=== PATIENT | female | born 1940 | race Caucasian/White ===

== ENCOUNTER 2017-06-07 08:02 | Day surgery (SDC) | payer MEDICARE, OTHER ==
[~2017-06-07 08:02] MED LIST: ACETAMINOPHEN 1,000 MG/100 ML BTL IV ONE
[2017-06-07] MEDS ORDERED: LIDOCAINE HCL 1% MDV 20 ML VIAL SQ ONE (10:56)
[2017-06-07] MEDS ORDERED: CEFAZOLIN 1 Gram 1 GM/50 ML BAG IVPB ONE (14:36)
[2017-06-07] MEDS ORDERED: KETOROLAC 30 MG/ML VIAL IVP ONE (14:52)
[2017-06-07] MEDS ORDERED: MIDAZOLAM HCL 2MG/2ML VIAL IV ONE (14:52)
[2017-06-07] MEDS ORDERED: PROPOFOL 10 MG/ML VIAL IV ONE (14:52)
[2017-06-07] MEDS ORDERED: *PACU ONLY* KETAMINE HCL 10 MG/ML (20ML) VIAL IV ONE (14:52)
--- NOTE | 2017-06-11 12:40 | Operative Note ---
DATE OF SURGERY: 06/07/2017 Surgeon: Tavon Capone DO Referring physician: Dipak Jordan DO PREOPERATIVE DIAGNOSIS: Trigger finger of the left ring finger. POSTOPERATIVE DIAGNOSIS: Trigger finger of the left ring finger. OPERATION: Tenotomy A1 berry of the left ring finger. Anesthesia: Assisted local. PROCEDURE: This 76-year-old female was taken to the operating room and placed in the supine position on the operating room table. Assisted local anesthesia was used, 1% Xylocaine plain, 2 mL was used as a local anesthetic. The area of the proximal edge of the A1 berry was anesthetized and after satisfactory anesthetic and prepping and draping in the usual sterile fashion, a longitudinal incision was made, dissecting down through the skin and subcutaneous tissue. Hemostasis was obtained with the electrocautery and the proximal edge of the A1 berry was identified and it was split from its proximal to its distal margin under direct vision and there were excoriations of the sublimis tendon, which were seen proximal to this, and thickening of the tenosynovium overlying this was present and this was divided to expose the tendon, and a segment of about 0.5 cm to 0.75 of a cm showed some excoriation of the tendon, almost an abrasive-type change, but the tendon was not completely disrupted. Once the tenosynovium was divided, the tendon moved freely with no catching of the tendon being identified, some mild nodularity of the tendon was also identified. The wound was irrigated. Hemostasis was obtained with the electrocautery, and the wound closed with interrupted 6-0 nylon suture. Sterile dressings were applied and the patient was taken to the recovery room in satisfactory condition. GROSS PATHOLOGY: There was excoriation of the sublimis tendon and a mild nodularity of the tendon as it entered the A1 berry as described above. MTDD
== END 2017-06-07 09:40 | disposition home or self-care (01) ==
LOC: SUR 08:02
PROVIDERS: ATTEND Orthopaedic Surgery
DX: M65.342 Trigger finger, left ring finger (principal); I10 Essential (primary) hypertension; M19.90 Unspecified osteoarthritis, unspecified site; F41.8 Other specified anxiety disorders; F03.91 Unspecified dementia, unspecified severity, with behavioral disturbance
CPT/HCPCS: J1885

== ENCOUNTER 2018-01-10 13:03 | Inpatient (IN) | payer MEDICARE, OTHER ==
[2018-01-10 14:08] LABS: HEMATOCRIT 39.1 % (35.0-47.0); MEAN CELL VOLUME 97.3 fl (81-97); MEAN CORPUSCULAR HEMOGLOBIN 32.3 pg (27-33); MEAN CORPUSCULAR HGB CONC 33.2 g/dl (32-36); MEAN PLATELET VOLUME 9.8 fl (7.4-10.4); PLATELET COUNT 202 K/uL (130-400); RED BLOOD COUNT 4.02 M/uL (3.80-5.40); RED CELL DISTRIBUTION WIDTH 13.4 % (11.5-14.5); WHITE BLOOD COUNT W/O DIFF 7.3 K/uL (4.2-12.2)
[2018-01-10 14:19] LABS: INFLUENZA A NEGATIVE (NEGATIVE); INFLUENZA B NEGATIVE (NEGATIVE)
[2018-01-10 14:25] LABS: PLATELET ESTIMATE NORMAL (NORMAL)
[2018-01-10 14:46] LABS: BILIRUBIN,TOTAL 0.6 mg/dL (0.2-1.0)
[2018-01-10 14:52] LABS: ALB/GLOB RATIO 1.2 (1.1-1.8); ALBUMIN 4.3 g/dL (4.0-5.0)
[2018-01-10 14:58] LABS: URINE APPEARANCE CLEAR; URINE BILIRUBIN NEGATIVE (NEGATIVE); URINE BLOOD NEGATIVE (NEGATIVE); URINE COLOR YELLOW; URINE GLUCOSE (UA) NEGATIVE (NEGATIVE); URINE KETONE NEGATIVE (NEGATIVE); URINE LEUKOCYTE ESTERASE NEGATIVE (NEGATIVE); URINE NITRITE NEGATIVE (NEGATIVE); URINE PROTEIN NEGATIVE (NEGATIVE); URINE UROBILINOGEN 0.2 E.U./dL (0.20 - 1.00)
[2018-01-10] MEDS ORDERED: CEFTRIAXONE SODIUM 1 GM in 0.9 % SODIUM CHLORIDE 100ML 100 ML IVPB ONE (15:12)
--- NOTE | 2018-01-10 16:14 | Emergency Department Record ---
History of Present Illness - General Chief complaint: Weakness Stated complaint: WEAKNESS Time Seen by Provider: 01/10/18 13:25 Source: Patient Mode of Arrival: EMS Limitations: No limitations - History of Present Illness Initial comments: pt has had a productive cough and increasing weakness. she was at [facility] via ambulance last night and was sent home. pt was d/w dr boucher and he wanted her to be brought here. daughters state she has become extremely weak MD Complaint: Generalized weakness Onset/Timin -: Days(s) Consistency: Getting worse Improves with: None Worsens with: None Associated Symptoms: Fever/chills, Shortness of breath - Jocelynn Coma Scale Eye Response: (4) Open spontaneously Verbal Response: (4) Confused conversation - Related Data Home Medications Medication Instructions Recorded Confirmed Last Taken Docusate Sodium [Colace] 100 mg PO BID 01/10/18 01/10/18 01/10/18 Levothyroxine Sodium [Synthroid] 125 mcg PO DAILY 01/10/18 01/10/18 01/10/18 Allergies Allergy/AdvReac Type Severity Reaction Status Date / Time doxycycline Allergy Unknown ITCHING Verified 04/16/16 10:16 promethazine HCl Allergy Unknown HYPERSENSIT Verified 04/16/16 10:16 [From PHENERGAN] IVITY Travel Screening - Travel/Exposure Within Last 30 Days Have you traveled within the last 30 days?: No - Travel/Exposure Within Last Year Have you traveled outside the [place] in the last year?: No - Additonal Travel Details Have you been exposed to anyone with a communicable illness?: No - Travel Symptoms Symptom Screening: None Review of Systems Reviewed: No additional complaints except as noted below Constitutional: Reports: As per HPI. Denies: Chills, Fever, Malaise, Night sweats, Weakness, Weight change Eyes: Reports: As per HPI. Denies: Eye discharge, Eye pain, Photophobia, Vision change ENT: Reports: As per HPI. Denies: Congestion, Dental pain, Ear pain, Epistaxis , Hearing loss, Throat pain Respiratory: Reports: As per HPI. Denies: Cough, Dyspnea, Hemoptysis, Stridor, Wheezes Cardiovascular: Reports: As per HPI. Denies: Arrhythmia, Chest pain, Dyspnea on exertion, Edema, Murmurs, Orthopnea, Palpitations, Paroxysmal nocturnal dyspnea, Rheumatic Fever, Syncope Endocrine: Reports: As per HPI. Denies: Fatigue, Heat or cold intolerance, Polydipsia, Polyuria Gastrointestinal: Reports: As per HPI. Denies: Abdominal pain, Constipation, Diarrhea, Hematemesis, Hematochezia, Melena, Nausea, Vomiting Genitourinary: Reports: As per HPI. Denies: Abnormal menses, Discharge, Dyspareunia, Dysuria, Frequency, Hematuria, Incontinence, Retention, Urgency Musculoskeletal: Reports: As per HPI. Denies: Arthralgia, Back pain, Gout, Joint swelling, Myalgia, Neck pain Skin: Reports: As per HPI. Denies: Bruising, Change in color, Change in hair/ nails, Lesions, Pruritus, Rash Neurological: Reports: As per HPI. Denies: Abnormal gait, Confusion, Headache, Numbness, Paresthesias, Seizure, Tingling, Tremors, Vertigo, Weakness Psychiatric: Reports: As per HPI. Denies: Anxiety, Auditory hallucinations, Depression, Homicidal thoughts, Suicidal thoughts, Visual hallucinations Hematological/Lymphatic: Reports: As per HPI. Denies: Anemia, Blood Clots, Easy bleeding, Easy bruising, Swollen glands Past Medical History - SOCIAL HISTORY Smoking Status: Never smoker Alcohol Use: None Drug Use: None - RESPIRATORY Hx Respiratory Disorders: Yes Hx Pneumonia: Yes Hx Sleep Apnea: Yes Hx of CPAP: Yes Comment:: sarcoidosis - CARDIOVASCULAR Hx Cardio Disorders: Yes Hx Hypertension: Yes (on meds good control) - NEURO Hx Neuro Disorders: Yes Hx Dementia: Yes Comment:: onset dementia - GI Hx GI Disorders: Yes Hx Irritable Bowel: Yes (on meds good control) Comment:: hx constipation, rectal prolapse - Hx Genitourinary Disorders: Yes 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) - ENDOCRINE Hx Endocrine Disorders: No - MUSCULOSKELETAL Hx Musculoskeletal Disorders: Yes Hx Arthritis: Yes Comment:: chronic neck, thoracic and back issues - PSYCH Hx Psych Problems: Yes Hx Anxiety: Yes Hx Depression: Yes - HEMATOLOGY/ONCOLOGY Hx Hematology/Oncology Disorders: Yes Hx Blood Transfusions: No (jehovahs witness) Family Medical History Any Significant Family History?: No Hx Cancer: Father, Brother/Sister Hx Heart Disease: Mother Physical Exam - General General Appearance: Alert, Cooperative, Mild distress - Head Head exam: Normal inspection - Eye Eye exam: Normal appearance, PERRL, EOMI Pupils: Normal accommodation - ENT ENT exam: Normal exam, Mucous membranes moist, Normal external ear exam, Normal orophraynx Ear exam: Normal external inspection. negative: External canal tenderness Nasal Exam: Normal inspection. negative: Discharge, Sinus tenderness Mouth exam: Normal external inspection, Tongue normal Teeth exam: Normal inspection. negative: Dental caries Throat exam: Normal inspection. negative: Tonsillar erythema, Tonsillar exudate - Neck Neck exam: Normal inspection, Full ROM. negative: Tenderness - Respiratory Respiratory exam: Rales. negative: Respiratory distress - Cardiovascular Cardiovascular Exam: Regular rate, Normal rhythm, Normal heart sounds - GI/Abdominal GI/Abdominal exam: Soft, Normal bowel sounds. negative: Tenderness - Rectal Rectal exam: Deferred - exam: Deferred - Extremities Extremities exam: Normal inspection, Full ROM, Normal capillary refill. negative: Tenderness - Back Back exam: Reports: Normal inspection, Full ROM. Denies: Muscle spasm, Rash noted, Tenderness - Neurological Neurological exam: Alert, Normal gait, Oriented X3, Reflexes normal - Psychiatric Psychiatric exam: Normal affect, Normal mood - Skin Skin exam: Dry, Intact, Normal color, Warm Course Vital Signs 01/10/18 01/10/18 13:05 15:35 Temperature 98.8 F Pulse Rate 74 Pulse Rate [ 76 Pulse Ox Probe] Respiratory 18 16 Rate Blood Pressure 144/75 Blood Pressure 154/80 [Left Arm] Pulse Ox 92 L 99 Medical Decision Making - Lab Data Result diagrams: 01/10/18 12:37 01/10/18 12:37 Lab Results 01/10/18 01/10/18 01/10/18 Range/Units 12:37 12:37 13:45 WBC 7.3 (4.2-12.2) K/uL RBC 4.02 (3.80-5.40) M/uL Hgb 13.0 (11.6-16.0) gm/dl Hct 39.1 (35.0-47.0) % MCV 97.3 H (81-97) fl MCH 32.3 (27-33) pg MCHC 33.2 (32-36) g/dl RDW 13.4 (11.5-14.5) % Plt Count 202 (130-400) K/uL MPV 9.8 (7.4-10.4) fl Neutrophils % 69.0 (47-80) % Band Neutrophils % 12.0 H (0-5) % Eosinophils % Not Reportable Basophils % Not Reportable Lymphocytes 16.0 (16-45) % Monocytes 3.0 (0-9) % Platelet Estimate Normal (NORMAL) RBC Morphology Normal Sodium 139 (136-145) mmol/L Potassium 3.7 (3.4-4.5) mmol/L Chloride 99 (98-107) mmol/L Carbon Dioxide 28.0 (22-29) mmol/L Anion Gap 12.0 (7-16) BUN 20 (8-23) mg/dL Creatinine 1.0 H (0.5-0.9) mg/dL Estimated GFR 57 mL/min Random Glucose 108 (74-109) mg/dL Calcium 10.1 (8.8-10.2) mg/dL Total Bilirubin 0.60 (0.2-1.0) mg/dL AST 19 (10.0-35.0) U/L ALT 16 (<33) U/L Alkaline Phosphatase 76 (35-104) U/L Total Protein 8.0 (6.6-8.7) g/dL Albumin 4.3 (4.0-5.0) g/dL Globulin 3.7 (1.4-4.8) gm/dL Albumin/Globulin Ratio 1.2 (1.1-1.8) Urine Color Urine Appearance Urine pH (5.0-8.0) Ur Specific [place] (1.002-1.030) Urine Protein (NEGATIVE) Urine Glucose (UA) (NEGATIVE) Urine Ketones (NEGATIVE) Urine Blood (NEGATIVE) Urine Nitrite (NEGATIVE) Urine Bilirubin (NEGATIVE) Urine Urobilinogen (0.20 - 1.00) E.U./dL Ur Leukocyte Esterase (NEGATIVE) Influenza Type A Ag Negative (NEGATIVE) Influenza Type B Ag Negative (NEGATIVE) 01/10/18 Range/Units 14:45 WBC (4.2-12.2) K/uL RBC (3.80-5.40) M/uL Hgb (11.6-16.0) gm/dl Hct (35.0-47.0) % MCV (81-97) fl MCH (27-33) pg MCHC (32-36) g/dl RDW (11.5-14.5) % Plt Count (130-400) K/uL MPV (7.4-10.4) fl Neutrophils % (47-80) % Band Neutrophils % (0-5) % Eosinophils % Basophils % Lymphocytes (16-45) % Monocytes (0-9) % Platelet Estimate (NORMAL) RBC Morphology Sodium (136-145) mmol/L Potassium (3.4-4.5) mmol/L Chloride (98-107) mmol/L Carbon Dioxide (22-29) mmol/L Anion Gap (7-16) BUN (8-23) mg/dL Creatinine (0.5-0.9) mg/dL Estimated GFR mL/min Random Glucose (74-109) mg/dL Calcium (8.8-10.2) mg/dL Total Bilirubin (0.2-1.0) mg/dL AST (10.0-35.0) U/L ALT (<33) U/L Alkaline Phosphatase (35-104) U/L Total Protein (6.6-8.7) g/dL Albumin (4.0-5.0) g/dL Globulin (1.4-4.8) gm/dL Albumin/Globulin Ratio (1.1-1.8) Urine Color Yellow Urine Appearance Clear Urine pH 7.5 (5.0-8.0) Ur Specific [place] 1.010 (1.002-1.030) Urine Protein Negative (NEGATIVE) Urine Glucose (UA) Negative (NEGATIVE) Urine Ketones Negative (NEGATIVE) Urine Blood Negative (NEGATIVE) Urine Nitrite Negative (NEGATIVE) Urine Bilirubin Negative (NEGATIVE) Urine Urobilinogen 0.2 (0.20 - 1.00) E.U./dL Ur Leukocyte Esterase Negative (NEGATIVE) Influenza Type A Ag (NEGATIVE) Influenza Type B Ag (NEGATIVE) Disposition Disposition: Admit Clinical Impression: Pneumonia Qualifiers: Pneumonia type: due to unspecified organism Laterality: bilateral Lung location : unspecified part of lung Qualified Code(s): J18.9 - Pneumonia, unspecified organism Disposition: Still a Patient at [facility] Decision to Admit: Admit from ER Decision to Admit Date: 01/10/18 Decision to Admit Time: 16:20 Forms: Patient Portal Access Quality - Quality Measures Quality Measures: N/A - Blood Pressure Screening Does Patient Have Any of the Following: Active Dx of HTN Blood Pressure Classification: Hypertensive Reading Systolic Measurement: 144 Diastolic Measurement: 75 Screening for High Blood Pressure: Patient Exclusion, Hx of HTN [P6306]
[2018-01-10] MEDS ORDERED: ACETAMINOPHEN 325 MG TAB PO PRN (19:13)
[2018-01-10] MEDS ORDERED: ALBUTEROL SULFATE (0.083%) 2.5 MG/3 ML NEB INH PRN (20:08)
[2018-01-10] MEDS: METHYLPREDNISOLONE PF 125MG/VIAL IVP SCH (20:15)
[2018-01-10] MEDS: GABAPENTIN 100 MG CAPSULE PO SCH (21:15)
[2018-01-10] MEDS: DOCUSATE SODIUM 100 MG CAPSULE PO SCH (21:15)
[2018-01-10] MEDS: PRAMIPEXOLE DI-HCL 0.25 MG TABLET PO SCH (21:16)
[2018-01-10] MEDS: IPRATROPIUM/ALBUTEROL (0.5MG/3MG) NEB INH SCH (22:45)
[2018-01-11] MEDS: IPRATROPIUM/ALBUTEROL (0.5MG/3MG) NEB INH SCH ×5 (05:54→21:27)
[2018-01-11] MEDS: METHYLPREDNISOLONE PF 125MG/VIAL IVP SCH (06:02)
[2018-01-11] MEDS: LEVOTHYROXINE SODIUM 125 MCG TABLET PO SCH (06:02)
--- NOTE | 2018-01-11 07:19 | RADIOLOGY REPORT ---
EXAM: CHEST, TWO VIEWS HISTORY: CHEST PAIN. TECHNIQUE: Frontal and lateral views of the chest were obtained. Comparison: 02/13/13 chest. FINDINGS: Cardiomegaly with ectasia of the thoracic aorta. Scarring in the left lung base. Stimulating wires project over the upper thoracic spine. Osteopenia. Underlying COPD with coarse reticulonodular changes bilaterally. No pneumothorax. No confluent air space opacity. IMPRESSION: CARDIOMEGALY. COARSE RETICULONODULAR CHANGES BILATERALLY SUGGESTING PNEUMONITIS. CONTINUED FOLLOW-UP RECOMMENDED. UNDERLYING COPD. JOB NUMBER: [id number] [facility]
[2018-01-11] MEDS ORDERED: PREDNISONE 1 MG TABLET PO SCH (08:00)
[2018-01-11] MEDS: BUPROPION HCL 150 MG TAB.SR.12H PO SCH ×2 (09:26→22:25)
[2018-01-11] MEDS: GABAPENTIN 100 MG CAPSULE PO SCH ×3 (09:26→22:25)
[2018-01-11] MEDS: DULOXETINE HCL 30 MG CAPSULE.DR PO SCH (09:26)
[2018-01-11] MEDS: DONEPEZIL HCL 5 MG TABLET PO SCH (09:27)
[2018-01-11] MEDS: AMLODIPINE BESYLATE 5MG TAB PO SCH (09:27)
[2018-01-11] MEDS: DOCUSATE SODIUM 100 MG CAPSULE PO SCH ×2 (09:27→22:25)
--- NOTE | 2018-01-11 10:40 | History and Physical Report ---
DATE OF ADMISSION: 01/10/2018 Surgeon: Ryan Schumacher DO CHIEF COMPLAINT: Cough, congestion, decreased appetite and weakness over the last 2 days. CHIEF COMPLAINT/HISTORY OF CHIEF COMPLAINT: This 77 year old came in here after being sick for 2 days. Seen at [facility]. Given a treatment of albuterol and diagnosed with flu, dehydration, and she previously got worse at home. They called Dr. Jordan, their primary doctor, who said to come in the emergency department here. Evaluated by Dr. Barron. Admitted to the hospital with bilateral pneumonia, difficulty breathing, and a coarse cough. Daughters Shirin and Elmira were at the bedside giving me the history. Patient has had dementia for 1-2 years. Does not recognize the daughters anymore. Of course, the cough just came on over the last 2 days. She had a flu panel done in the emergency department. Will also do a flu PCR to confirm the flu negative panel. 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 [facility], which are dressing the wound every week or 2 weeks, according to the family. Does not look infected at this time, but is a full thickness ulcer of the skin, about the size of the palm of my hand. MEDICAL HISTORY: Sarcoidosis, on prednisone 1 mg a day chronically, obstructive sleep apnea and on CPAP, dementia, colitis, hypertension, irritable bowel syndrome, renal insufficiency, chronic back and neck pain, and a long history of migraine headaches, which seem to have resolved since she had the dementia. Hypothyroidism. SURGICAL HISTORY: Multiple injections, rhizotomy, skin cancer, bilateral legs, bilateral knee scope and shoulder scope, hysterectomy, left total knee arthroplasty, hernia x2 repair, trigger finger repair. She had a peripheral nerve stimulator trial implant and removal, EGD, colonoscopy scope, dental removal of teeth and a jaw surgery, right cataract removal, thumb surgery, right thoracic rhizotomy on 09/02/2014. CURRENT MEDICATIONS: On admission: 1. Levothyroxine 125 mcg q.daily. 2. Amlodipine 2.5 q.daily. 3. Melatonin 5 mg at h.s. 4. Aricept 10 mg daily. 5. Colace 100 mg b.i.d. 6. Neurontin 200 mg t.i.d. 7. Calcium carbonate 600 mg daily. 8. Wellbutrin 300 mg daily. 9. Prednisone 1 mg daily. 10. Mirapex 0.75 mg at h.s. 11. Folic acid 1 mg daily. 12. Fluocinonide 15 g topically daily. This is a cream used for her skin cancer. 13. Cymbalta 60 mg daily. 14. Vitamin D3 2000 units daily. ALLERGIES: DOXYCYCLINE and PROMETHAZINE. SOCIAL HISTORY: She never smoked. No drug use or alcohol use. FAMILY HISTORY: Father, brother, and sister had cancer. Mother had heart disease. SYSTEMS REVIEW: HEENT: See chief complaint. She has congestion, cough for the last 2 days. Cardiovascular: No chest pain. Respiratory: She has kind of a coarse bronchial-type cough, very loud and audibly by standing at the bedside. Gastrointestinal: No nausea, vomiting, diarrhea, black stools, or bloody stools. Genitourinary: No dysuria, hematuria, frequency, burning on urination. Musculoskeletal: No joint or bone abnormalities. Neurologic: No CVA, paralysis, or paresthesias. She does have Alzheimer disease for the last 1-2 years. Does not recognize her daughters anymore, and she lives with her daughter, Shirin. Gynecologic: No vaginal bleeding or lumps in her breasts. Endocrine: She has hypothyroidism. No diabetes. Integumentary: She has skin cancer on her leg with a radiation wound to the left lower leg. PHYSICAL EXAMINATION: VITAL SIGNS: Height 5 foot 5. Weight 119 pounds. Temperature 97.7. Pulse 97. Blood pressure 167/82. Respiratory rate 16. Pulse ox 95% on 2 L nasal cannula. HEENT: Pupils equal, round, and react to light and accommodation. Extraocular muscles intact. Funduscopic examination is benign. Tympanic membranes are ashley. Throat is clear. NECK: Supple. No jugular venous distention, hepatojugular reflux. No carotid bruit. Thyroid smooth. CARDIOVASCULAR: Regular rate and rhythm with no murmurs, clicks, rubs, or gallops. RESPIRATORY: Coarse breath sounds bilaterally and very loud cough with rattling. ABDOMEN: Soft, nontender. No hepatosplenomegaly. No masses. No tenderness. Bowel sounds are active. No bruit. EXTREMITIES: No pitting edema. No cyanosis. No clubbing. Full range of motion. Peripheral pulses good. She has a wound on her left lower leg about the size of the palm of my hand from radiation and skin cancer. BREAST, GYNECOLOGIC, AND RECTAL: Exam deferred. NEUROLOGIC: Cranial nerves II-XII intact. No gross deficits. Sensation normal. Strength normal. Deep tendon reflexes bilaterally. Babinski negative. She is alert, but disoriented to time, place. She knows her name. IMPRESSION: 1. Bilateral pneumonia. 2. Sarcoidosis. 3. Dementia, Alzheimer type. 4. Hypothyroidism. 5. Renal insufficiency. 6. Hypertension. 7. Chronic back pain. 8. She has had a history of colitis in the past. 9. She has obstructive sleep apnea. PLAN: Rocephin 1 g q.12 hours. Azithromycin 500 mg q.daily. DuoNeb treatments q.4 hours while awake. Will let her hydrate herself and watch her fluid status because her lungs sound very full at this point. Solu-Medrol 60 mg q.8 hours. The family is going to decide on DNR. It sounds like she is going to be a DNR, but they are still doing a discussion of that situation. Plan as stated already. Inpatient certification: Admitted to inpatient care based on my medical assessment after consideration of the patient risk factors, age, comorbidities, and the patient's presenting symptoms, and acuity. I expect that this patient will remain in the hospital for greater than or equal to 2 midnights and that the services needed warrant inpatient care because of bilateral pneumonia, need for oxygen, breathing treatments, and IV antibiotics. Estimated length of stay 3 days. The patient may reasonably expect to be discharged or transferred to a hospital within 96 hours after admission to [facility]. I certify that my determination is in accordance with my understanding of Medicare requirements for reasonable and necessary inpatient services. MARLON
--- NOTE | 2018-01-11 11:35 | Rehab Evaluation ---
Patient Information - Patient Information Diagnosis: Pneumonia, Weakness Ordered Treatment: PT Evaluate and Treat Status: Initial Evaluation Surgery: No Past Medical/Surgical Hx: PAST MEDICAL/SURGICAL HISTORY Past Surgical History mult inj and rhiz; Skin cancer bilateral legs valentine knee scope and shoulder scope; hyst; LTKA; hernia x2; trigger finger; PNS trial/implant/removal; egd/c-scope, dental (teeth removed and jaw moved forward); right cataract removal; thumb sx; right thoracic rhiz 09-02-14. right total knee 2015. 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 The patient's bedroom and bathroom are on the main level. The home has 6-8 steps to enter with railings on both sides. The patient's bathroom has a tub/ shower combo with a shower/transfer bench. The patient states that she uses a 2WW for ambulation outside of the home, but does not use device for inside the home. Her daughter states that the patient needs cues for shower transfers, dressing, and some assistance for other ADLs.) - Time With Patient Total Time Spent With Patient (Min): 30 Treatment Procedures: Detail (PT Initial Evaluation) Subjective Information - Subjective Information Per Patient (Patient's daughter states that she is doing much better today than yesterday - acting more like herself. Still shows some weakness. Said that dementia has worsened since last swing-bed stay last year.) Objective Data - Pain Pain Present: No Pain Intensity: 0 Pain Scale Used: Numeric (1 - 10) - Mental Status Patient Orientation: Person (The patient suffers from dementia, so orientation to place and time was not able to be assessed due to difficulty following questions.) - ROM Within normal limits (Both Hips, knees, and ankles were all WNL) - Strength/Tone Within normal limits (B hip abduction/adduction 5/5, B Knee Flexion/Extension 5/ 5, B Ankle Dorsiflexion/Plantarflexion 5/5. Hip flexion was not assessed due to patient not able to follow instructions.) - Bed Mobility Independent (The patient was able to transfer from bed to the bedside - Supine to sit - Independently. Scooting and sit to supine was not assessed.) - Transfers Independent (The patient was independent/CGA x1 to transfer from sit to stand. Independent with stand to sit.) - Balance Balance Sitting: Good (No LOB with sitting at the bedside during muscle strength testing.) Balance Standing: Fair (The patient was able to stand at the bedside without loss of balance, with and without UE support from the walker. She did not have LOB with ambulation, but had some shakiness with ambulation.) - Sensation Intact - Gait Detail (The patient was able to ambulate from the bedside to the chair within her room with hand-hold assist x2. She had slight unsteadiness with gait, but no major loss of balance) - Special Tests No Therapy Assessment - Therapy Assessment Detail (The patient required CGA for transfers at initial evaluation, but was able to complete transfer nearly independently. The patient had no strength or ROM deficits with testing, but the patient did have some unsteadiness with gait activities. The patient would benefit from either home physical therapy or continued therapy at [facility]. The patient would benefit from continued therapy for gait training and balance activities.) Problem List - Problem List Physical Therapy Problem List: Detail (1) Unsteadiness with gait 2) Decreased endurance 3) Cognitive deficits due to dementia 4) Decreased standing balance) Goals - Goals Physical Therapy Goals: 1) The patient will be able to ambulate with least restrictive assistive device for household distances, so she can complete ADLs safely. 2) The patient will tolerate 20 minutes of physical activities to increase endurance for ADLs. 3) The patient will increase standing balance to decrease risk of falls in the home Prognosis - Prognosis Good Plan - Plan Physical Therapy Plan: The patient will be seen 1-2x/day M-F until inpatient discharge for gait training and balance activities. The patient would benefit from continued home PT or [facility] upon discharge from [facility].
--- NOTE | 2018-01-11 11:39 | Rehab Evaluation ---
Patient Information - Patient Information Diagnosis: Pneumonia, weakness Ordered Treatment: OT Evaluate and Treat Status: Initial Evaluation Surgery: No Past Medical/Surgical Hx: PAST MEDICAL/SURGICAL HISTORY Past Surgical History mult inj and rhiz; Skin cancer bilateral legs valentine knee scope and shoulder scope; hyst; LTKA; hernia x2; trigger finger; PNS trial/implant/removal; egd/c-scope, dental (teeth removed and jaw moved forward); right cataract removal; thumb sx; right thoracic rhiz 09-02-14. right total knee 2015. 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 Daughter reports that she is independent with painting her fingernails and occasionally brushing her teeth but this depends on the day. Daughter is present during pt showering due to safety and cueing required secondary to pt's dementia.) Social History: Detail (Pt lives with oldest daughter and has 24/7 supervision available. They live in a Bi-level house with pt occupying main floor. There are 6-8 steps to enter home with bilateral railings. Bathroom consists of tub/ shower combo with hand held shower head and transfer bench. Pt sits to shower. Pt also receives visits from home health nurse.) Precautions: [place], Fall - Time With Patient Total Time Spent With Patient (Min): 20 Treatment Procedures: Detail (OT eval LOW) Subjective Information - Subjective Information Per Patient Objective Data - Pain Pain Present: No - Mental Status Patient Orientation: Person (Pt unable to state her name, age, or current location.) - ROM Within normal limits (Pt is WNL BUE's) - Strength/Tone Within normal limits (Pt grossly 4+/5 BUE shld flex, ext, abd, and add. R elbow flex and ext = 5/5. L elbow not tested due to IV placement in anterior elbow. Weakened gross grasp in L hand.) - Bed Mobility Needs Assist (Supervision and verbal cueing) - Transfers Needs Assist (CGA due to safety for sit<>stand t/f's) - Sensation Intact - Gait Detail (see PT note.) - ADL's/IADL's Detail (Pt's daughter was assisting with drsg & showering ART HAND[employer]ER due to sequencing and initiation issues from pt's dementia.) Therapy Assessment - Therapy Assessment Detail (Pt tolerated evaluation well. She has good strength in BUE's, however, due to pt's dementia, there are safety concerns with mobility and ADLs. Feel patient would benefit from home OT/PT or CARLOS placement in order to work on increasing independence with ADLs and ability to safely ambulate household distances to complete toileting.) Problem List - Problem List Occupational Therapy Problem List: Detail (1. Decreased safety with ambulating household distances. 2. Decreased sequencing and initiatiation of ADLs 3. Decreased independence of ADLs) Goals - Goals Occupational Therapy Goals: 1. Pt to be at prior functioning level for drsg. 2. Pt to be independent with toileting. 3. Pt to safely ambulate household distances. Prognosis - Prognosis Moderate Plan - Plan Occupational Therapy Plan: Recommend home OT or CARLOS placement to increase safety w/ ambulating household distances, and increasing independence with ADLs.
[2018-01-11] MEDS: CEFTRIAXONE SODIUM 1 GM in 0.9 % SODIUM CHLORIDE 100ML 100 ML IVPB SCH (14:19)
[2018-01-11] MEDS: ENOXAPARIN 30 MG/0.3 ML SYR SQ SCH (14:20)
[2018-01-11] MEDS ORDERED: CEFTRIAXONE SODIUM 1 GM in 0.9 % SODIUM CHLORIDE 100ML 100 ML IVPB SCH (15:30)
[2018-01-11] MEDS: AZITHROMYCIN 500 MG TABLET PO SCH ×2 (17:40→19:40)
[2018-01-11] MEDS: PREDNISONE 20 MG TAB PO SCH (17:40)
[2018-01-11] MEDS: PRAMIPEXOLE DI-HCL 0.25 MG TABLET PO SCH (22:27)
[2018-01-12] MEDS: CEFTRIAXONE SODIUM 1 GM in 0.9 % SODIUM CHLORIDE 100ML 100 ML IVPB SCH ×2 (01:50→12:44)
[2018-01-12] MEDS: IPRATROPIUM/ALBUTEROL (0.5MG/3MG) NEB INH SCH ×6 (05:52→21:15)
[2018-01-12] MEDS: LEVOTHYROXINE SODIUM 125 MCG TABLET PO SCH (07:23)
[2018-01-12] MEDS: PREDNISONE 20 MG TAB PO SCH ×2 (07:23→17:59)
[2018-01-12] MEDS: AMLODIPINE BESYLATE 5MG TAB PO SCH (09:52)
[2018-01-12] MEDS: AZITHROMYCIN 500 MG TABLET PO SCH (09:52)
[2018-01-12] MEDS: GABAPENTIN 100 MG CAPSULE PO SCH ×3 (09:52→22:24)
[2018-01-12] MEDS: BUPROPION HCL 150 MG TAB.SR.12H PO SCH ×2 (09:52→22:23)
[2018-01-12] MEDS: DOCUSATE SODIUM 100 MG CAPSULE PO SCH ×2 (09:52→22:23)
[2018-01-12] MEDS: DONEPEZIL HCL 5 MG TABLET PO SCH (09:52)
[2018-01-12] MEDS: DULOXETINE HCL 30 MG CAPSULE.DR PO SCH (09:52)
[2018-01-12] MEDS: ENOXAPARIN 30 MG/0.3 ML SYR SQ SCH (11:22)
[2018-01-12] MEDS: PRAMIPEXOLE DI-HCL 0.25 MG TABLET PO SCH (22:24)
[2018-01-13] MEDS: CEFTRIAXONE SODIUM 1 GM in 0.9 % SODIUM CHLORIDE 100ML 100 ML IVPB SCH ×2 (01:02→13:01)
[2018-01-13] MEDS: IPRATROPIUM/ALBUTEROL (0.5MG/3MG) NEB INH SCH ×4 (05:51→20:48)
[2018-01-13] MEDS: PREDNISONE 20 MG TAB PO SCH ×2 (07:00→17:23)
[2018-01-13] MEDS: LEVOTHYROXINE SODIUM 125 MCG TABLET PO SCH (07:00)
[2018-01-13] MEDS: ENOXAPARIN 30 MG/0.3 ML SYR SQ SCH (09:23)
[2018-01-13] MEDS: DONEPEZIL HCL 5 MG TABLET PO SCH (09:23)
[2018-01-13] MEDS: GABAPENTIN 100 MG CAPSULE PO SCH ×3 (09:23→22:34)
[2018-01-13] MEDS: DULOXETINE HCL 30 MG CAPSULE.DR PO SCH (09:24)
[2018-01-13] MEDS: BUPROPION HCL 150 MG TAB.SR.12H PO SCH ×2 (09:24→22:35)
[2018-01-13] MEDS: AMLODIPINE BESYLATE 5MG TAB PO SCH (09:24)
[2018-01-13] MEDS: DOCUSATE SODIUM 100 MG CAPSULE PO SCH ×2 (09:24→22:37)
[2018-01-13] MEDS: AZITHROMYCIN 500 MG TABLET PO SCH (09:25)
[2018-01-13] MEDS: PRAMIPEXOLE DI-HCL 0.25 MG TABLET PO SCH (22:36)
[2018-01-14] MEDS: CEFTRIAXONE SODIUM 1 GM in 0.9 % SODIUM CHLORIDE 100ML 100 ML IVPB SCH (01:05)
[2018-01-14] MEDS: IPRATROPIUM/ALBUTEROL (0.5MG/3MG) NEB INH SCH ×3 (05:37→10:20)
[2018-01-14] MEDS: LEVOTHYROXINE SODIUM 125 MCG TABLET PO SCH (07:05)
[2018-01-14] MEDS: PREDNISONE 20 MG TAB PO SCH (07:05)
[2018-01-14] MEDS ORDERED: FUROSEMIDE 20 MG TABLET PO ONE (07:49)
--- NOTE | 2018-01-14 08:08 | Discharge Note ---
VTE H&P Assessment - Risk for VTE Risk for VTE: Yes Risk Level: Moderate Risk Assessment Date: 01/10/18 Risk Assessment Time: 19:00 VTE Orders Placed or Will Be Placed: Yes Discharge Medications - Discharge Medications Prescriptions: Azithromycin [Zithromax] 500 mg PO DAILY #7 tab Cephalexin [Keflex] 500 mg PO Q6H #28 capsule Ipratropium/Albuterol Sulfate [Combivent] 1 - 2 puff IH QID #1 inh Home Medications: Ambulatory Orders Amlodipine Besylate [Norvasc] 2.5 mg PO DAILY 04/04/14 [Last Taken 01/10/18] Bupropion HCl [Wellbutrin] 300 mg PO DAILY 04/04/14 [Last Taken 01/09/18] Duloxetine HCl [Cymbalta] 60 mg PO DAILY 04/04/14 [Last Taken 01/10/18] Folic Acid 1 mg PO DAILY 04/04/14 [Last Taken 01/10/18] Gabapentin [Neurontin] 200 mg PO TID 04/04/14 [Last Taken 01/10/18] Pramipexole Di-HCl [Mirapex] 0.75 mg PO QHS 04/04/14 [Last Taken 01/09/18] Donepezil HCl [Aricept] 10 mg PO DAILY 02/21/15 [Last Taken 01/10/18] Calcium Carbonate [Calcium] 600 mg PO DAILY 02/29/16 [Last Taken 01/09/18] Cholecalciferol (Vitamin D3) [Vitamin D3] 2,000 unit PO DAILY 02/29/16 [Last Taken 01/10/18] Fluocinonide 15 gm TP DAILY 02/29/16 [Last Taken 01/09/18] Melatonin 5 mg PO QHS 02/29/16 [Last Taken 01/09/18] Docusate Sodium [Colace] 100 mg PO BID 01/10/18 [Last Taken 01/10/18] Levothyroxine Sodium [Synthroid] 125 mcg PO DAILY 01/10/18 [Last Taken 01/10/18] Azithromycin [Zithromax] 500 mg PO DAILY #7 tab 01/14/18 [Last Taken Unknown] Cephalexin [Keflex] 500 mg PO Q6H #28 capsule 01/14/18 [Last Taken Unknown] Ipratropium/Albuterol Sulfate [Combivent] 1 - 2 puff IH QID #1 inh 01/14/18 [ Last Taken Unknown] Prednisone [Prednisone 10Mg] 10 mg PO ASDIR #30 tab 01/14/18 [Last Taken Unknown ] Discharge Note - Date Date of Discharge Note: 01/14/18 Disposition: Inpatient Rehab Facility Condition: (2) Stable Additional Instructions: going to rehab inpatient to get stronger after rehab follow up with Dr. Bonner use keflex 500 mg four times a day for 7 days use azithromycin 500 mg once aday for 7 days combivent inhaler 2 puff QID Prescriptions: Azithromycin [Zithromax] 500 mg PO DAILY #7 tab Cephalexin [Keflex] 500 mg PO Q6H #28 capsule Ipratropium/Albuterol Sulfate [Combivent] 1 - 2 puff IH QID #1 inh Prednisone [Prednisone 10Mg] 10 mg PO ASDIR #30 tab Referrals: SHIRLEY BONNER [Primary Care Provider] - Forms: Patient Portal Access Activity at Discharge: Increase Activity as Tolerated Diet at Discharge: Low Salt Diet
[2018-01-14] MEDS ORDERED: CEPHALEXIN 500 MG CAPSULE PO SCH ×2 (08:15→12:00)
[2018-01-14] MEDS: BUPROPION HCL 150 MG TAB.SR.12H PO SCH (09:15)
[2018-01-14] MEDS: GABAPENTIN 100 MG CAPSULE PO SCH (09:15)
[2018-01-14] MEDS: ENOXAPARIN 30 MG/0.3 ML SYR SQ SCH (09:15)
[2018-01-14] MEDS: DOCUSATE SODIUM 100 MG CAPSULE PO SCH (09:16)
[2018-01-14] MEDS: DULOXETINE HCL 30 MG CAPSULE.DR PO SCH (09:16)
[2018-01-14] MEDS: DONEPEZIL HCL 5 MG TABLET PO SCH (09:16)
[2018-01-14] MEDS: AZITHROMYCIN 500 MG TABLET PO SCH (09:16)
[2018-01-14] MEDS: AMLODIPINE BESYLATE 5MG TAB PO SCH (09:16)
--- NOTE | 2018-01-14 12:50 | Discharge Summary ---
DATE OF ADMISSION: 01/10/2018 DATE OF DISCHARGE: 01/14/2018 Attending physician: Ryan Schumacher DO DISCHARGE DIAGNOSES: 1. Bilateral pneumonia. 2. COPD exacerbation. 3. 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 4. Dementia. 5. Hypothyroidism. 6. Sarcoidosis. 7. Hypertension. 8. Renal insufficiency, mild. 9. Irritable bowel syndrome. 10. Colitis. REASON FOR HOSPITALIZATION: Cough, congestion, decreased appetite, weakness over the last 2 days. This 77-year-old female came into the emergency department being sick for 2 days. Seen at [facility], given an Albuterol treatment and diagnosed with the flu and dehydration, then sent home. She got worse. They called Dr. Jordan. He recommended she come to the emergency department at [place] to be evaluated by Dr. Barron, admitted to the hospital for bilateral pneumonia and difficulty breathing and coarse cough. Daughters Shirin and Elmira were at the bedside, giving me her history. The patient has dementia for 1 to 2 years, she does not recognize her daughters any more. The cough just seemed to get worse over the last 2 days, according to the daughter. A flu panel was done in the emergency department, which was negative. She had also had a flu PCR sent out to confirm the flu panel. The left leg ulcer has been present since squamous cell carcinoma was both removed and radiated and she [facility] and getting dressings every week from them. The wound does not look infected at this time, but it is a full-thickness ulceration of the left lower leg, nursing home between the knee and the ankle, about the size of my palm. SIGNIFICANT FINDINGS: Chest x-ray showing coarse reticular nodule changes bilaterally, suggesting pneumonitis, continue followup in underlying COPD. LABORATORY: The WBC was 7300, hemoglobin was 13, potassium was 3.7, BUN is 20, creatinine is 1. The liver enzymes are normal and the urine is negative. The influenza PCR was negative. Flu panel was negative. THERAPY PROVIDED: The patient was given IV Rocephin 1 gram q.12 hours and Azithromycin 500 mg once a day. Breathing treatments of DuoNebs every 4 hours and she had Solu-Medrol which was then switched over to oral prednisone and she gradually improved. CONDITION ON DISCHARGE: Much improved. DISCHARGE INSTRUCTIONS: 1. The patient will be discharged to rehab for strengthening. She is deconditioned and also she may need termite control service representative placement. 2. Combivent inhaler 2 puffs q.i.d. 3. Keflex 500 mg 4 times a day for 7 days. 4. Azithromycin 500 mg once a day for 7 days. 5. We will taper off the prednisone at 40 mg a day for 3 days, 30 mg a day for 3 days, 20 mg a day for 3 days, and 10 mg a day for 3 days. 6. Follow up with Dr. Jordan [facility]. We will continue her home medications of: 1. Levothyroxine 125 mcg daily. 2. Amlodipine 2.5 mg daily. 3. Melatonin 5 mg at h.s. 4. Aricept 10 mg daily. 5. Colace 100 mg b.i.d. 6. Neurontin 200 mg t.i.d. 7. Calcium with vitamin D 600 mg daily. 8. Wellbutrin 300 mg daily. 9. Mirapex 0.75 mg at h.s. 10. Folic acid 1 mg daily. 11. Cymbalta 60 mg daily. 12. Vitamin D3 2000 units a day. CC: SHIRLEY JORDAN D.O. MTDLorna
== END 2018-01-14 13:20 | DRG 194 ==
LOC: ER 13:03 → MEDSURG 18:17
PROVIDERS: ADMIT Emergency Medicine; ATTEND Emergency Medicine
DX: J18.9 Pneumonia, unspecified organism (principal); R05 Cough; J44.1 Chronic obstructive pulmonary disease with (acute) exacerbation; R53.1 Weakness; M19.90 Unspecified osteoarthritis, unspecified site; F41.8 Other specified anxiety disorders; G47.30 Sleep apnea, unspecified; F03.90 Unspecified dementia, unspecified severity, without behavioral disturbance, psychotic disturbance, mood disturbance, and anxiety; L59.8 Other specified disorders of the skin and subcutaneous tissue related to radiation; D86.9 Sarcoidosis, unspecified; I10 Essential (primary) hypertension; E03.9 Hypothyroidism, unspecified; N28.9 Disorder of kidney and ureter, unspecified
CPT/HCPCS: 71046; 80053; 81003; 85027; 87400; 94640; 94760; 94761; 96365; 96366; 99223; 99232; 99239; 99285; J1650; J2930; J3490; J7512; J7613

== ENCOUNTER 2018-02-11 07:47 | Day surgery (SDC) | payer MEDICARE, OTHER, MEDICAID ==
[~2018-02-11 07:47] MED LIST changes: +CEFAZOLIN 1 Gram 1 GM/50 ML BAG IVPB ONE
[2018-02-11] MEDS ORDERED: ROPIVACAINE HCL (NAROPIN) /PF 5MG/ML 20ML VIAL IV ONE (07:48)
[2018-02-11] MEDS ORDERED: EPHEDRINE SULFATE 50 MG/ML ML IV ONE (07:48)
[2018-02-11] MEDS ORDERED: SEVOFLURANE 250 ML INH ONE (07:48)
[2018-02-11] MEDS ORDERED: PROPOFOL 10 MG/ML VIAL IV ONE (07:48)
[2018-02-11] MEDS ORDERED: KETOROLAC 30 MG/ML VIAL IVP ONE (07:48)
[2018-02-11] MEDS ORDERED: LIDOCAINE 2% MDV (20MG/ML) 20ML VIAL IV ONE (07:48)
[2018-02-11] MEDS ORDERED: DEXAMETHASONE 4 MG/ML 1ML VIAL IVP ONE (07:48)
[2018-02-11] MEDS ORDERED: FENTANYL PF 100MCG/2ML VIAL IV ONE (07:48)
[2018-02-11] MEDS ORDERED: BUPIVACAINE 0.25% W/EPI MPF 30ML VIAL IVP ONE (07:48)
[2018-02-11] MEDS ORDERED: HYDROCODONE/APAP 5/325MG TABLET PO ONE (07:48)
--- NOTE | 2018-02-12 11:40 | Operative Note ---
DATE OF SURGERY: 02/11/2018 Surgeon: Jose Medina DO PREOPERATIVE DIAGNOSIS: Reducible left inguinal hernia. POSTOPERATIVE DIAGNOSIS: Reducible left inguinal hernia. OPERATION: Open left inguinal herniorrhaphy with mesh. Indication: The patient is a 77-year-old female who presented with pain and bulging of the left inguinal region. We did discuss repair. Risks, benefits, and alternatives were discussed. Risks include but are not limited to bleeding, infection, acute or chronic pain, recurrence. She understood this fully. PROCEDURE: Thereafter, consent was signed and questions answered. She was taken to the operating room and placed in a supine position. General anesthesia was administered per the department of anesthesia. The patient's left inguinal region was shaved of hair and prepped and draped in a sterile fashion. At this time, adequate timeout was performed. She did receive preoperative antibiotic. At this time, the oblique region was anesthetized with a total of 5 mL of 0.25% Sensorcaine with epinephrine. A block was also done medial to the ASIS as well as at the level of the pubic tubercle. At this time, a 4 cm oblique incision was made. This was carried down through the subcutaneous tissues through Meena layer to the aponeurosis of the external oblique. This was cleaned off. A holger was made with a scalpel blade, enlarged through the superficial inguinal ring with Metzenbaum scissors. Care was taken not to injure the underlying round ligament. I did check the femoral space. There was no femoral hernia noted. Superior and inferior flaps were developed. The patient had a direct hernia noted. The proximal distal line of the hernia was amputated and passed off the field. This was not sent. The floor was then imbricated with 0 Vicryl in a running fashion. A right-sided square ProGrip mesh was obtained. This was placed in the floor of the inguinal canal with excellent overlap of the pubic tubercle. Sutures went at the level to the internal oblique aponeurosis. At this time, the aponeurosis of the external oblique was then closed over the mesh with 2-0 Vicryl, the Meena layer was closed with 3-0 Vicryl, and skin was closed with 4-0 Vicryl. The patient was taken to the recovery room in satisfactory condition. FINDINGS ON SURGERY: Left inguinal hernia, direct, repaired as above. CC: Suzanne FRANCIS
== END 2018-02-11 11:35 | disposition home or self-care (01) ==
LOC: SUR 07:47
PROVIDERS: ATTEND Surgery
DX: K40.90 Unilateral inguinal hernia, without obstruction or gangrene, not specified as recurrent (principal); I10 Essential (primary) hypertension; D86.9 Sarcoidosis, unspecified; G25.81 Restless legs syndrome
CPT/HCPCS: 49505; 00830; J1885; J3010; J0690; J2795

== ENCOUNTER 2018-04-03 07:47 | Day surgery (SDC) | payer MEDICARE, OTHER ==
--- NOTE | 2018-04-03 06:42 | History and Physical Report ---
DATE: 04/02/2018. CHIEF COMPLAINT AND HISTORY OF CHIEF COMPLAINT: This is a patient with a history of intractable radiculopathy, both cervical and thoracic. She had a spinal cord stimulator implant on 12/09/2014. Over time although the system appeared to be working well, a revision was required. She has continued to achieve some degree of pain control but stopped using the system because of issues with respect to functionality. We provided the patient with information on revision and replacement, and she opted to remove. PAST MEDICAL HISTORY: Headaches, seizure disorder, hypertension. PAST SURGICAL HISTORY: Foot surgery, knee surgery, hip surgery, shoulder surgery. MEDICATIONS ON ADMISSION: To be provided. ALLERGIES: Phenergan. SOCIAL HISTORY: Caffeine. FAMILY HISTORY: Hypertension, cancer. REVIEW OF SYSTEMS: The patient is appropriate and in no acute distress. The remainder of the systems review is as above. PHYSICAL EXAMINATION: General: Height and weight are unknown. Vital Signs: Unavailable. HEENT: Within normal limits. Lungs: Clear. Heart: Regular rate and rhythm. Abdomen: Nontender. Musculoskeletal: Examination of the musculoskeletal system shows the midline incision for the leads at approximately T12. The generator pouch at the right posterior gluteal margin is identified. All incisions are intact. The underlying pain pattern is radicular, across both lower extremities. Motor and sensory field function is difficult to assess. Ambulation: Assistive device utilized for ambulation. Neurologic: Cranial nerves are intact. IMPRESSION: 1. LUMBAR RADICULOPATHY, ICD-10 CODE M54.16. 2. SPINAL CORD STIMULATOR INTERNAL GENERATOR NONFUNCTIONAL. PLAN: The patient is here on an outpatient basis for removal of the stimulator , two leads, and internal generator. The procedure will be considered outpatient, although an overnight stay will be evaluated. The potential risks, side effects, and complications have all been carefully reviewed and discussed. JOB NUMBER: [id number] cc: Suzanne Casillas
[~2018-04-03 07:47] MED LIST changes: -CEFAZOLIN 1 Gram 1 GM/50 ML BAG IVPB ONE; +CEFAZOLIN 2 Gram 2 GM/50 ML BAG IVPB ONE; +FAMOTIDINE 20MG TABLET PO ONE; +MECLIZINE 25 MG TABLET PO ONE; +METOCLOPRAMIDE 10 MG TABLET PO ONE
[2018-04-03] MEDS ORDERED: MIDAZOLAM HCL 2MG/2ML VIAL IV ONE (07:48)
[2018-04-03] MEDS ORDERED: FENTANYL PF 100MCG/2ML VIAL IV ONE (07:48)
[2018-04-03] MEDS ORDERED: CLINDAMYCIN (PEDIATRIC DOSING) 150 MG/ML VIAL IVPB ONE (07:48)
[2018-04-03] MEDS ORDERED: BUPIVACAINE 0.5% W/EPI MPF 30 ML VIAL IVP ONE (07:48)
[2018-04-03] MEDS ORDERED: LIDOCAINE 2% MDV (20MG/ML) 20ML VIAL IV ONE (07:48)
[2018-04-03] MEDS ORDERED: PROPOFOL 10 MG/ML VIAL IV ONE (07:48)
[2018-04-03] MEDS ORDERED: LIDOCAINE 1% W/EPI 1:200,000 MPF 30ML SQ ONE (07:48)
--- NOTE | 2018-04-04 19:36 | Operative Note - [place] ---
DATE OF SURGERY: 04/03/18 PREOPERATIVE DIAGNOSES: 1. LUMBAR RADICULOPATHY, ICD-10 CODE = M54.16 AND M54.17. 2. SPINAL CORD STIMULATOR AND INTERNAL GENERATOR NONFUNCTIONAL. SURGERY: 1. INCISION, SUBCUTANEOUS DISSECTION AND REMOVAL OF TWO SPINAL CORD STIMULATORS IMPLANTED. 2. INCISION, SUBCUTANEOUS DISSECTION AND REMOVAL OF INTERNAL IMPLANTED SPINAL STIMULATOR GENERATOR RIGHT POSTERIOR GLUTEAL MARGIN. SURGEON: PATRICIA NUÑEZ D.O. ANESTHESIA: LOCAL SEDATION. ANESTHESIA PROVIDER: CLAIRE CROCKER CRNA INDICATION: This patient presents with a history of intractable lumbar radiculopathy. A spinal cord stimulator had been implanted six years ago. Over time, the patient began to use it less and is currently requesting that we remove the device. SURGERY: Intravenous line, vital sign monitoring, IV sedation, prepped and draped with sterile technique. Patient positioned prone. Sterile prep, sterile technique. Midline incision for the leads under imaging identified, the leads and the anchors identified. Skin infiltrated, incision made and subcutaneous dissection was conducted to the supraspinous fascia. The anchoring devices were released. The leads and the anchor suture were removed intact. At the right posterior gluteal margin generator pouch, skin infiltrated, incision made and subcutaneous dissection was conducted to the generator pouch. The generator and its connections were then removed. Antibiotic irrigation and Bovie for hemostasis. Incisions were closed with Vicryl for fascia and a running subcuticular Vicryl for skin, Dermabond closure over the sites. She was transported to the Recovery Room stable with no side-effects from the procedure or the sedation. When fully awake and alert, she was prepared for discharge. DISCHARGE INSTRUCTIONS: 1. The sites are to remain clean and dry. No showering or bathing in any way that would disrupt dressings. If it happens, contact the clinic. She can shower but not sit in water. 2. Standard medications resumed including the Levaquin, the antibiotic, 500 mg once a day for 14 days. 3. Office will contact the patient at home to set up an appointment in the next 7 to 10 days to evaluate the incisional sites. Until then, she is to keep her activities. All other instructions provided, numbers to contact if problems given. She was then discharged. cc: Dr. Jordan JOB NUMBER: [id number] MTDD
== END 2018-04-03 11:35 | disposition home or self-care (01) ==
LOC: SUR 07:47
PROVIDERS: ATTEND Pain Medicine Interventional Pain Medicine
DX: M54.16 Radiculopathy, lumbar region (principal); M54.17 Radiculopathy, lumbosacral region; I10 Essential (primary) hypertension; D86.9 Sarcoidosis, unspecified; F03.90 Unspecified dementia, unspecified severity, without behavioral disturbance, psychotic disturbance, mood disturbance, and anxiety

== ENCOUNTER 2019-11-15 11:23 | Emergency (ER) | payer MEDICARE, MEDICAID ==
--- NOTE | 2019-11-15 11:47 | Emergency Department Record ---
History of Present Illness - General Chief Complaint: Fall Injury Stated Complaint: FALL Time Seen by Provider: 11/15/19 11:45 Source: Patient, RN notes reviewed Mode of Arrival: Wheelchair - History of Present Illness Initial Comments: fall yesterday and landed on her buttock and still having low back pain and they brought her in to check for a fracture. Patient has dementia for over 5 years and one week ago she developed a cold and seen by Dr Jordan and urine checked and no signs of a UTI. Currently she is answering questions by thought process is only oriented to name only with short term memory problems. Family is giving her 24 hour care and she doesn't know her childrens names but she says she knows them. Family is looking in to placing her into a home and her Dr has moved to [facility] and they are planning to see Dr Miles and no appointment yet set. Onset/Timin -: Hour(s) Fall From: Standing Place Fall Occurred: Home Loss of Consciousness: None Prolonged Down Time?: No Symptoms Prior to Fall: None Location: Buttocks - [place] Coma Scale Eye Response: (4) Open spontaneously Motor Response: (4) Withdraws to pain - Related Data Home Medications Medication Instructions Recorded Confirmed Last Taken Docusate Sodium [Colace] 250 mg PO BID 11/15/19 Unknown Previous Rx's Medication Instructions Recorded Prednisone [Prednisone 10Mg] 10 mg PO ASDIR #30 tab 01/14/18 Allergies Allergy/AdvReac Type Severity Reaction Status Date / Time doxycycline Allergy Unknown ITCHING Verified 11/15/19 11:49 promethazine HCl Allergy Unknown HYPERSENSIT Verified 11/15/19 11:49 [From PHENERGAN] IVITY Travel Screening - Travel/Exposure Within Last 30 Days Have you traveled within the last 30 days?: No - Travel/Exposure Within Last Year Have you traveled outside the [place] in the last year?: No - Travel Symptoms Symptom Screening: None Review of Systems Reviewed: No additional complaints except as noted below Constitutional: Reports: As per HPI. Denies: Chills, Fever, Malaise, Night sweats, Weakness, Weight change Eyes: Reports: As per HPI. Denies: Eye discharge, Eye pain, Photophobia, Vision change ENT: Reports: As per HPI. Denies: Congestion, Dental pain, Ear pain, Epistaxis, Hearing loss, Throat pain Respiratory: Reports: As per HPI. Denies: Cough, Dyspnea, Hemoptysis, Stridor, Wheezes Cardiovascular: Reports: As per HPI. Denies: Arrhythmia, Chest pain, Dyspnea on exertion, Edema, Murmurs, Orthopnea, Palpitations, Paroxysmal nocturnal dyspnea, Rheumatic Fever, Syncope Endocrine: Reports: As per HPI. Denies: Fatigue, Heat or cold intolerance, Polydipsia, Polyuria Gastrointestinal: Reports: As per HPI. Denies: Abdominal pain, Constipation, Diarrhea, Hematemesis, Hematochezia, Melena, Nausea, Vomiting Genitourinary: Reports: As per HPI. Denies: Abnormal menses, Discharge, Dyspareunia, Dysuria, Frequency, Hematuria, Incontinence, Retention, Urgency Musculoskeletal: Reports: As per HPI, Back pain. Denies: Arthralgia, Gout, Joint swelling, Myalgia, Neck pain Skin: Reports: As per HPI. Denies: Bruising, Change in color, Change in hair/nails, Lesions, Pruritus, Rash Neurological: Reports: As per HPI. Denies: Abnormal gait, Confusion, Headache, Numbness, Paresthesias, Seizure, Tingling, Tremors, Vertigo, Weakness Psychiatric: Reports: As per HPI. Denies: Anxiety, Auditory hallucinations, Depression, Homicidal thoughts, Suicidal thoughts, Visual hallucinations Hematological/Lymphatic: Reports: As per HPI. Denies: Anemia, Blood Clots, Easy bleeding, Easy bruising, Swollen glands Past Medical History - SOCIAL HISTORY Smoking Status: Never smoker Alcohol Use: None Drug Use: None - RESPIRATORY Hx Respiratory Disorders: Yes Hx Pneumonia: Yes (3-18) Hx Sleep Apnea: Yes Hx of CPAP: Yes Comment:: sarcoidosis - CARDIOVASCULAR Hx Cardio Disorders: Yes Hx Hypertension: Yes (on meds good control) - NEURO Hx Neuro Disorders: Yes Hx Dementia: Yes Hx Seizures: Yes (yrs ago related to alcohol ?) Comment:: progression over the last 6 months - GI Hx GI Disorders: Yes Hx Abdominal Pain: No (denies) Hx Irritable Bowel: Yes (on meds good control) Comment:: hx constipation, rectal prolapse - Hx Genitourinary Disorders: Yes 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) - ENDOCRINE Hx Endocrine Disorders: Yes Hx Diabetes: No Hx Thyroid Disease: Yes (hypo on meds since 12-17) - MUSCULOSKELETAL Hx Musculoskeletal Disorders: Yes Hx Arthritis: Yes Comment:: chronic neck, thoracic and back issues - PSYCH Hx Psych Problems: Yes Hx Anxiety: Yes (controlled with meds) Hx Depression: Yes (controlled with meds) - HEMATOLOGY/ONCOLOGY Hx Hematology/Oncology Disorders: Yes Hx Bruising: Yes (bruises easily) Hx Cancer: Yes (skin cancer) Hx Radiation Therapy: Yes (left hoffman 8-17) Hx Blood Transfusions: No (jehovahs witness) Family Medical History Any Significant Family History?: No Hx Cancer: Father, Brother/Sister Hx Heart Disease: Mother Physical Exam - General General Appearance: Alert, Oriented x3, Cooperative, No acute distress - Head Head exam: Normal inspection - Eye Eye exam: Normal appearance, PERRL Pupils: Normal accommodation - ENT ENT exam: Normal exam, Mucous membranes moist, Normal external ear exam, Normal orophraynx, TM's normal bilaterally Ear exam: Normal external inspection. negative: External canal tenderness Nasal Exam: Normal inspection. negative: Discharge, Sinus tenderness Mouth exam: Normal external inspection, Tongue normal Teeth exam: Normal inspection. negative: Dental caries Throat exam: Normal inspection. negative: Tonsillar erythema, Tonsillar exudate - Neck Neck exam: Normal inspection, Full ROM. negative: Tenderness - Respiratory Respiratory exam: Normal lung sounds bilaterally. negative: Respiratory distress - Cardiovascular Cardiovascular Exam: Regular rate, Normal rhythm, Normal heart sounds - GI/Abdominal GI/Abdominal exam: Soft, Normal bowel sounds. negative: Tenderness - Rectal Rectal exam: Deferred - exam: Deferred - Extremities Extremities exam: Normal inspection, Full ROM, Normal capillary refill. negative: Tenderness - Back Back exam: Reports: Normal inspection, Full ROM, Tenderness (lumbar spine pain ), Vertebral tenderness. Denies: Muscle spasm, Rash noted - Neurological Neurological exam: Alert, Normal gait, Oriented X3, Reflexes normal - Psychiatric Psychiatric exam: Normal affect, Normal mood - Skin Skin exam: Dry, Intact, Normal color, Warm Course Vital Signs 11/15/19 11:32 Temperature 97.9 F Pulse Rate 64 Respiratory 18 Rate Blood Pressure 124/82 Pulse Ox 96 - Reevaluation(s) Reevaluation #1: encourage family to follow up with family Dr for placement into correction or adult foster care. Also will give them a script for a wheel chair to get aroung the house better 11/15/19 14:36 Medical Decision Making - Data Complexity MDM Data: Labs Ordered and/or Reviewed (UA negative), X-Ray Ordered and/or Reviewed (CT of lumbar and pelvic negative for fractures ) - Lab Data Result diagrams: 11/15/19 12:20 11/15/19 12:20 Disposition Clinical Impression: Lumbar pain, Dehydration Lumbar contusion Qualifiers: Encounter type: initial encounter Qualified Code(s): S30.0XXA - Contusion of lower back and pelvis, initial encounter Dementia Qualifiers: Dementia type: Alzheimer's disease Alzheimer's disease onset: late-onset Dementia behavioral disturbance: without behavioral disturbance Qualified Code(s): G30.1 - Alzheimer's disease with late onset; F02.80 - Dementia in other diseases classified elsewhere without behavioral disturbance Disposition: Home, Self-Care Condition: (2) Stable Instructions: Contusion in Adults (ED) Additional Instructions: follow up with Dr Miles for further care tylenol for pain 650 mg every 4 hours as needed Forms: Patient Portal Access Time of Disposition: 14:40 Quality - Quality Measures Quality Measures: N/A - Blood Pressure Screening Does Patient Have Any of the Following: No Blood Pressure Classification: Pre-Hypertensive BP Reading Systolic Measurement: 124 Diastolic Measurement: 82 Screening for High Blood Pressure: < Pre-Hypertensive BP, F/U Documented > [G8950] Pre-Hypertensive Follow-up Interventions: Referral to alternative/primary care provider.
[2019-11-15] MEDS ORDERED: ACETAMINOPHEN 325 MG TAB PO ONE (12:05)
[2019-11-15 12:39] LABS: ABSOLUTE NEUTROPHIL COUNT 4.86; BASO % 0.5 % (0-6); EOS % 1.5 % (0-6); GRAN % 73.2 % (47-80); HEMATOCRIT 38.5 % (35.0-47.0); HEMOGLOBIN 12.4 gm/dl (11.6-16.0); LYMPH % 15.8 % (16-45); MEAN CELL VOLUME 97.2 fl (81-97); MEAN CORPUSCULAR HEMOGLOBIN 31.3 pg (27-33); MEAN CORPUSCULAR HGB CONC 32.2 g/dl (32-36); MEAN PLATELET VOLUME 9.6 fl (7.4-10.4); PLATELET COUNT 225 K/uL (130-400); RED BLOOD COUNT 3.96 M/uL (3.80-5.40); RED CELL DISTRIBUTION WIDTH 13.7 % (11.5-14.5); WHITE BLOOD COUNT W/O DIFF 6.6 K/uL (4.2-12.2)
[2019-11-15 12:48] LABS: CREATININE 1.2 mg/dL (0.5-0.9)
--- NOTE | 2019-11-15 13:24 | RADIOLOGY REPORT ---
EXAMINATION: Two View Chest Radiographs EXAM DATE: 11/15/2019 1:12 PM TECHNIQUE: Frontal and lateral views INDICATION: fall COMPARISON: 01/10/2018 ENCOUNTER: Not applicable FINDINGS: The cardiomediastinal silhouette is unremarkable. Lungs are clear. No effusion or pneumothorax. Pulmo nary vasculature is unremarkable. IMPRESSION: No acute cardiopulmonary findings. Dictated by: Thanh Langford MD on 11/15/2019 1:23 PM. .
--- NOTE | 2019-11-15 13:30 | CT SCAN REPORT ---
EXAMINATION: CT Lumbar Spine without Contrast EXAM DATE: 11/15/2019 1:13 PM TECHNIQUE: Standard protocol CT images were performed of the lumbar spine without contrast. Sagittal and coronal 2-D images were reconstructed. INDICATION: fall COMPARISON: None ENCOUNTER: Not applicable FINDINGS: Grade 1 anterolisthesis of L4 on L5. Extensive multilevel loss of disc height. 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 Multilevel degenerative changes are present. No high-grade canal stenosis. No acute fracture. Sacrum and sacroiliac joints are grossly unremarkable. IMPRESSION: Degenerative changes in the lumbar spine.. No evidence of fracture findings. Dictated by: Thanh Langford MD on 11/15/2019 1:23 PM. .
--- NOTE | 2019-11-15 13:34 | CT SCAN REPORT ---
EXAMINATION: CT of the Pelvis without Intravenous Contrast. EXAM DATE: 11/15/2019 1:13 PM TECHNIQUE: A standard CT pelvis protocol was performed without intravenous contrast. Sagittal and cor onal images were reconstructed. INDICATION: fall COMPARISON: None ENCOUNTER: Not applicable FINDINGS: Ureters & Bladder: Both distal ureters have a normal caliber and the urinary bladder is unremarkable . Gastrointestinal: Included large and small bowel segments in the pelvis are unremarkable. Reproductive Organs: The uterus is absent. Lymphatic System: There is no adenopathy within the pelvis. Vasculature: Aorto iliac calcification Peritoneum: There is no free fluid within the pelvis. Retroperitoneum: There is no retroperitoneal mass, hemorrhage, or hematoma. Abdominal Wall & Musculoskeletal: No acute fracture. Degenerative change LS-spine. Compression screw left hip. 3-D imaging: Not performed. IMPRESSION: 1. No acute fracture, follow-up MRI if symptoms persist 2. Hysterectomy 3. Compression screw left hip Dictated by: Dalton Bolden MD on 11/15/2019 1:28 PM. .
[2019-11-15 14:18] LABS: URINE APPEARANCE CLEAR; URINE BILIRUBIN NEGATIVE (NEGATIVE); URINE BLOOD NEGATIVE (NEGATIVE); URINE COLOR YELLOW; URINE GLUCOSE (UA) NEGATIVE (NEGATIVE); URINE KETONE NEGATIVE (NEGATIVE); URINE LEUKOCYTE ESTERASE NEGATIVE (NEGATIVE); URINE NITRITE NEGATIVE (NEGATIVE); URINE PROTEIN NEGATIVE (NEGATIVE); URINE UROBILINOGEN 0.2 E.U./dL (0.20 - 1.00)
== END 2019-11-15 14:57 | disposition home or self-care (01) ==
LOC: ER 11:23
DX: S30.0XXA Contusion of lower back and pelvis, initial encounter (principal); E86.0 Dehydration; W07.XXXA Fall from chair, initial encounter; Y92.009 Unspecified place in unspecified non-institutional (private) residence as the place of occurrence of the external cause; I10 Essential (primary) hypertension; G30.1 Alzheimer's disease with late onset; F02.80 Dementia in other diseases classified elsewhere, unspecified severity, without behavioral disturbance, psychotic disturbance, mood disturbance, and anxiety
CPT/HCPCS: 71046; 72131; 72192; 80048; 81003; 85025; 99284

== ENCOUNTER 2019-12-07 17:02 | Emergency (ER) | payer MEDICARE, MEDICAID ==
--- NOTE | 2019-12-07 17:37 | Emergency Department Record ---
History of Present Illness - General Chief complaint: Pain Stated complaint: FALL/RT ELBOW INJURY Time Seen by Provider: 12/07/19 17:27 Source: Patient, Family (Daughter) Mode of Arrival: Wheelchair Limitations: Other (Dementia) - History of Present Illness Initial comments: 79 yo female with a past medical history significant for dementia presents to ED for evaluation of a skin tear to the right elbow resulting from a fall at her assisted living facility. Patient and her daughter deny other injury on examination, and patient does not take anticoagulation medications at her baseline. Daughter reports that the facility asked for the patient to be brought to the ED for evaluation of her skin tear. MD Complaint: Joint pain Onset/Timin -: Hour(s) Location: Right, Elbow Improves with: Nothing Worsens with: Nothing Associated Symptoms: Denies other symptoms - Related Data Previous Rx's Medication Instructions Recorded Prednisone [Prednisone 10Mg] 10 mg PO ASDIR #30 tab 01/14/18 Allergies Allergy/AdvReac Type Severity Reaction Status Date / Time doxycycline Allergy Unknown ITCHING Verified 12/07/19 17:19 promethazine HCl Allergy Unknown HYPERSENSIT Verified 12/07/19 17:19 [From PHENERGAN] IVITY Travel/Exposure Screening - Travel/Exposure Within Last 30 Days Have you traveled within the last 30 days?: No - Travel/Exposure Within Last Year Have you traveled outside the [place] in the last year?: No - Additonal Travel/Exposure Details Have you been exposed to anyone with a communicable illness?: No - Travel Symptoms Symptom Screening: None Review of Systems Constitutional: Denies: Chills, Fever, Malaise, Night sweats Eyes: Denies: Eye discharge, Eye pain ENT: Denies: Congestion, Ear pain, Epistaxis Respiratory: Denies: Cough, Dyspnea Cardiovascular: Denies: Chest pain, Dyspnea on exertion Endocrine: Denies: Fatigue, Heat or cold intolerance Gastrointestinal: Denies: Abdominal pain, Nausea, Vomiting Genitourinary: Denies: Incontinence, Retention Musculoskeletal: Reports: Arthralgia. Denies: Back pain, Gout, Joint swelling Skin: Reports: Other (Skin tear to the right elbow). Denies: Bruising, Change in color Neurological: Denies: Abnormal gait, Headache Psychiatric: Denies: Anxiety Hematological/Lymphatic: Denies: Anemia, Blood Clots Past Medical History - SOCIAL HISTORY Smoking Status: Never smoker Alcohol Use: None Drug Use: None - RESPIRATORY Hx Respiratory Disorders: Yes Hx Pneumonia: Yes (3-18) Hx Sleep Apnea: Yes Hx of CPAP: Yes Comment:: sarcoidosis - CARDIOVASCULAR Hx Cardio Disorders: Yes Hx Hypertension: Yes (on meds good control) - NEURO Hx Neuro Disorders: Yes Hx Dementia: Yes Hx Seizures: Yes (yrs ago related to alcohol ?) Comment:: progression over the last 6 months - GI Hx GI Disorders: Yes Hx Abdominal Pain: No (denies) Hx Irritable Bowel: Yes (on meds good control) Comment:: hx constipation, rectal prolapse - Hx Genitourinary Disorders: Yes 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) - ENDOCRINE Hx Endocrine Disorders: Yes Hx Diabetes: No Hx Thyroid Disease: Yes (hypo on meds since 10-07) - MUSCULOSKELETAL Hx Musculoskeletal Disorders: Yes Hx Arthritis: Yes Comment:: chronic neck, thoracic and back issues - PSYCH Hx Psych Problems: Yes Hx Anxiety: Yes (controlled with meds) Hx Depression: Yes (controlled with meds) - HEMATOLOGY/ONCOLOGY Hx Hematology/Oncology Disorders: Yes Hx Bruising: Yes (bruises easily) Hx Cancer: Yes (skin cancer) Hx Radiation Therapy: Yes (left hoffman 8-17) Hx Blood Transfusions: No (jehovahs witness) Family Medical History Any Significant Family History?: Yes Hx Cancer: Father, Brother/Sister Hx Heart Disease: Mother Physical Exam - General General Appearance: Alert, Oriented x3, Cooperative, Mild distress Limitations: Other (Dementia, at her baseline per patient's daughter) - Head Head exam: negative: Atraumatic, Normocephalic, Normal inspection Head exam detail: negative: Abrasion, Contusion, Ocasio's sign, General tenderness, Hematoma, Laceration - Eye Eye exam: Normal appearance. negative: Conjunctival injection, Periorbital swelling, Periorbital tenderness, Scleral icterus - ENT Ear exam: negative: Auricular hematoma, Auricular trauma Nasal Exam: negative: Active bleeding, Discharge, Dried blood, Foreign body Mouth exam: negative: Drooling, Laceration, Muffled voice, Tongue elevation - Neck Neck exam: Normal inspection. negative: Meningismus, Tenderness - Respiratory Respiratory exam: Normal lung sounds bilaterally. negative: Respiratory distress, Rhonchi, Stridor, Wheezes - Cardiovascular Cardiovascular Exam: Regular rate, Normal rhythm, Normal heart sounds Peripheral Pulses: 3+: Radial (R) - GI/Abdominal GI/Abdominal exam: Soft. negative: Distended, Rebound, Rigid, Tenderness - Rectal Rectal exam: Deferred - exam: Deferred - Extremities Extremities exam: Full ROM, Tenderness, Other (Skin tear measuring approxmately 4.5 cm in length, FROM of the right elbow on examination, mild STS to the proximal ulna on examination, strong distal raidal pulse on examination.). negative: Calf tenderness, Pedal edema - Back Back exam: Denies: CVA tenderness (R), CVA tenderness (L) - Neurological Neurological exam: Alert. negative: Motor sensory deficit - Psychiatric Psychiatric exam: Normal affect, Normal mood - Skin Skin exam: Normal color. negative: Abrasion Type of lesion: negative: abrasion Course Vital Signs 12/07/19 17:20 Temperature 98.5 F Pulse Rate 76 Respiratory 20 Rate Blood Pressure 131/79 Pulse Ox 95 - Reevaluation(s) Reevaluation #1: 12/07/19 18:01 Right elbow: Negative Patient and her daughter were updated on radiograph results Prophylactic antibiotics are not felt to be indicated at this time Discussed the importance of daily dressing changes with return for any redness, drainage, or worsening of her sympotms. Patient appears stable for discharge at this time. Disposition Clinical Impression: Dementia Qualifiers: Dementia type: unspecified type Dementia behavioral disturbance: without behavioral disturbance Qualified Code(s): F03.90 - Unspecified dementia without behavioral disturbance Contusion, elbow Qualifiers: Encounter type: initial encounter Laterality: right Qualified Code(s): S50.01XA - Contusion of right elbow, initial encounter Skin tear of right elbow without complication Qualifiers: Encounter type: initial encounter Qualified Code(s): S51.011A - Laceration without foreign body of right elbow, initial encounter Disposition: Home, Self-Care Instructions: Skin Tear (ED) Additional Instructions: Return to ED if your symptoms worsen or if you have any concerns. Dressing changes daily. Follow-up with your family doctor in 3-5 days as for re-evaluation of your skin tear symptoms. Forms: Patient Portal Access Time of Disposition: 18:03 Quality - Quality Measures Quality Measures: N/A - Blood Pressure Screening Does Patient Have Any of the Following: No Blood Pressure Classification: Pre-Hypertensive BP Reading Systolic Measurement: 131 Diastolic Measurement: 79 Screening for High Blood Pressure: < Pre-Hypertensive BP, F/U Documented > [G8950] Pre-Hypertensive Follow-up Interventions: Referral to alternative/primary care provider.
--- NOTE | 2019-12-07 18:10 | RADIOLOGY REPORT ---
EXAMINATION: Right Elbow, Two Views EXAM DATE: 12/07/2019 5:58 PM TECHNIQUE: AP and lateral INDICATION: fall, skin tear, swelling COMPARISON: None ENCOUNTER: Initial FINDINGS: There is no bone or joint abnormality. Osteopenia. IMPRESSION: No acute fracture the right elbow. Dictated by: Edward Raya MD on 12/07/2019 6:07 PM. .
== END 2019-12-07 17:45 | disposition home or self-care (01) ==
LOC: ER 17:02
DX: S51.011A Laceration without foreign body of right elbow, initial encounter (principal); S50.01XA Contusion of right elbow, initial encounter; W19.XXXA Unspecified fall, initial encounter; Y92.129 Unspecified place in nursing home as the place of occurrence of the external cause; I10 Essential (primary) hypertension; F03.90 Unspecified dementia, unspecified severity, without behavioral disturbance, psychotic disturbance, mood disturbance, and anxiety
CPT/HCPCS: 99283